=== PATIENT | female | born 2000 | race Caucasian/White ===

== ENCOUNTER 2022-04-27 08:22 | Outpatient (CLI) | payer OTHER, SELFPAY ==
[2022-04-27 13:43] LABS: Chloride* 100 mmol/L (96-114)
[2022-04-27 13:44] LABS: Potassium* 4.2 mmol/L (3.6-5.1); Sodium* 138 mmol/L (135-149)
[2022-04-27 13:46] LABS: Creatinine* 0.8 mg/dL (0.5-1.5); Estimated Glomerular Filt Rate 105 ml/min
[2022-04-27 13:47] LABS: Blood Urea Nitrogen* 13 mg/dL (5-24); Carbon Dioxide* 27 mmol/L (20-32); Glucose* 88 mg/dL (60-115)
== END 2022-04-27 08:23 | disposition home or self-care (01) ==
PROVIDERS: PCP Family Medicine; Visit Provider Family Medicine
DX: F32.A Depression, unspecified (principal)
CPT/HCPCS: 80048; 84443

== ENCOUNTER 2022-09-09 13:20 | Outpatient (CLI) | payer OTHER, SELFPAY ==
[2022-09-09 19:33] LABS: Chlamydia DNA Amplified* NOT DETECTED (No Detected); GC DNA Amplified* NOT DETECTED (No Detected)
== END 2022-09-09 13:21 | disposition home or self-care (01) ==
PROVIDERS: PCP Family Medicine; Visit Provider Registered Nurse
DX: Z01.419 Encounter for gynecological examination (general) (routine) without abnormal findings (principal); Z11.3 Encounter for screening for infections with a predominantly sexual mode of transmission; Z13.6 Encounter for screening for cardiovascular disorders
CPT/HCPCS: 80061; 87491; 87591

== ENCOUNTER 2022-09-10 12:46 | Outpatient (CLI) | payer OTHER, SELFPAY ==
--- NOTE | 2022-09-10 13:00 | CRLHL7_ITS ---
For Patients: As a result of the Cures Act, medical imaging exams and procedure reports are released immediately into your electronic medical record. You may view this report before your referring provider. If you have questions, please contact your health care provider. INDICATION: Missing IUD strings TECHNIQUE: Ultrasound pelvis transvaginal on. COMPARISON: None FINDINGS: Uterus: 10.8 centimeter x 3.3 centimeter x 4.5 centimeter normal echotexture of the myometrium. No masses. Endometrium: The endometrium is not visualized. IUD present in the endometrial canal at the level of the uterine fundus. Right ovary: 3.5 centimeter x 2.1 centimeter x 2.0 centimeter. No ovarian or adnexal masses. Normal arterial and venous blood flow. Left ovary: 3.2 centimeter x 1.5 centimeter x 1.7 centimeter. No ovarian or adnexal masses. Normal arterial and venous blood flow. Cul-de-sac: Mild amount of free fluid. IMPRESSION: IUD present in the endometrial canal at the level of the fundus. Small amount of fluid in the cul de sac. Dictated by Jasbir Mills MD @ 09/10/2022 1:44:11 PM (Electronically Signed)
== END 2022-09-10 12:47 | disposition home or self-care (01) ==
LOC: US 12:47
PROVIDERS: PCP Family Medicine; Visit Provider Registered Nurse
DX: T83.32XA Displacement of intrauterine contraceptive device, initial encounter (principal)
CPT/HCPCS: 76830

== ENCOUNTER 2024-07-03 13:43 | Outpatient (CLI) | payer BC, SELFPAY ==
--- NOTE | 2024-07-03 14:00 | CRLHL7_ITS ---
For Patients: As a result of the Cures Act, medical imaging exams and procedure reports are released immediately into your electronic medical record. You may view this report before your referring provider. If you have questions, please contact your health care provider. INDICATION: First trimester scan, establish dates. COMPARISON: None. TECHNIQUE: Real-time cr-scale imaging of the pelvis was performed. FINDINGS: Sonographic imaging demonstrates a single living intrauterine gestation. The embryo demonstrates a regular cardiac rate measuring 176 beats per minute. The embryo`s crown-rump length measurement of 2.9 cm corresponds to a gestational age of 9 weeks 5 days with a sonographic due date of 01/31/2025. There is a normal-appearing yolk sac. There are no gross abnormalities noted within the embryo at this early state of development. The gestational sac has a normal appearance. There is a 1.3 x 0.7 x 0.8 cm perigestational hemorrhage. The amount of fluid within the sac appears appropriate for gestational age. The cervix is closed. The myometrium appears normal. The ovaries are of normal size. Corpus luteal cyst right ovary. There are no suspicious fluid collections noted in the cul-de-sac. IMPRESSION: Single living intrauterine with sonographic gestational age 9 weeks 5 days and sonographic due date 01/31/2025. Subchorionic hemorrhage measures 1.3 x 0.7 x 0.8 cm. Dictated by Jasbir Rosa MD @ 07/03/2024 2:32:48 PM (Electronically Signed)
== END 2024-07-03 13:44 | disposition home or self-care (01) ==
LOC: US 13:43
PROVIDERS: PCP Family Medicine; Visit Provider Midwife
DX: Z34.91 Encounter for supervision of normal pregnancy, unspecified, first trimester (principal); O20.9 Hemorrhage in early pregnancy, unspecified; Z3A.09 9 weeks gestation of pregnancy
CPT/HCPCS: 76817

== ENCOUNTER 2024-07-03 14:26 | Outpatient (CLI) | payer BC, SELFPAY | END 2024-07-03 14:27 | disposition home or self-care (01) | PROVIDERS: PCP Family Medicine; Visit Provider Midwife | DX: Z34.91 Encounter for supervision of normal pregnancy, unspecified, first trimester (principal); O20.9 Hemorrhage in early pregnancy, unspecified; Z3A.09 9 weeks gestation of pregnancy | CPT/HCPCS: 76817; 83020; 83021; 84443; 85660; 86592; 86703; 86704; 86706; 86762; 86787; 86803; 86850; 86900; 86901; 87086; 87340; 87491; 87591 ==

== ENCOUNTER 2024-08-31 14:56 | Outpatient (CLI) | payer BC, SELFPAY | END 2024-08-31 14:57 | disposition home or self-care (01) | LOC: NFLDREF 14:57 | PROVIDERS: PCP Family Medicine; Visit Provider Advanced Practice Midwife | DX: R10.30 Lower abdominal pain, unspecified (principal) | CPT/HCPCS: 87086 ==

== ENCOUNTER 2024-09-14 12:07 | Outpatient (CLI) | payer BC, SELFPAY | END 2024-09-14 12:08 | disposition home or self-care (01) | LOC: US 12:09 | PROVIDERS: PCP Family Medicine; Visit Provider Advanced Practice Midwife | DX: Z34.92 Encounter for supervision of normal pregnancy, unspecified, second trimester (principal); Z3A.21 21 weeks gestation of pregnancy | CPT/HCPCS: 76805 ==

== ENCOUNTER 2024-10-03 08:58 | Outpatient (CLI) | payer BC, SELFPAY ==
--- NOTE | 2024-10-03 09:15 | CRLHL7_ITS ---
For Patients: As a result of the Century Cures Act, medical imaging exams and procedure reports are released immediately into your electronic medical record. You may view this report before your referring provider. If you have questions, please contact your health care provider. INDICATION: 2nd trimester anatomical survey follow-up. TECHNIQUE: Ultrasound OB pelvis transabdominal. Real-time cr-scale and color Doppler. COMPARISON: Ob ultrasound 09/14/2024 FINDINGS: Intrauterine gestation: Single. heart rate: Regular, 147 bpm. presentation: Cephalic. Placenta: Posterior, without previa. Cervix: 4.6 cm and closed. Amniotic fluid: 6.1 cm deepest pocket. Anatomy not seen on previous anatomical survey: Nose and lips are well visualized on today`s exam and are within normal limits. Nasal bone in profile is better appreciated on prior ultrasound IMPRESSION: Nose and lips are well visualized on today`s exam and are within normal limits. No abnormalities appreciated Dictated by Nidia Quevedo MD @ 10/04/2024 12:49:39 PM (Electronically Signed)
== END 2024-10-03 08:59 | disposition home or self-care (01) ==
LOC: US 08:58
PROVIDERS: PCP Family Medicine; Visit Provider Midwife
DX: O35.AXX0 Maternal care for other (suspected) fetal abnormality and damage, fetal facial anomalies, not applicable or unspecified (principal)
CPT/HCPCS: 76816

== ENCOUNTER 2024-11-14 08:34 | Outpatient (CLI) | payer BC, SELFPAY | END 2024-11-14 08:35 | disposition home or self-care (01) | LOC: NFLDREF 11-17 01:49 | PROVIDERS: PCP Family Medicine; Referring Provider Family Medicine; Visit Provider Advanced Practice Midwife | DX: Z34.93 Encounter for supervision of normal pregnancy, unspecified, third trimester (principal); Z3A.28 28 weeks gestation of pregnancy | CPT/HCPCS: 86592 ==

== ENCOUNTER 2025-01-08 10:15 | Outpatient (CLI) | payer BC, SELFPAY | END 2025-01-08 10:16 | disposition home or self-care (01) | LOC: NFLDREF 01-09 17:10 | PROVIDERS: PCP Family Medicine; Referring Provider Family Medicine; Visit Provider Advanced Practice Midwife | DX: O26.86 Pruritic urticarial papules and plaques of pregnancy (PUPPP) (principal); Z3A.36 36 weeks gestation of pregnancy | CPT/HCPCS: 87081; 87653 ==

== ENCOUNTER 2025-02-05 07:29 | Inpatient (IN) | payer BC, SELFPAY ==
[2025-02-05] VITALS (78 sets, daily range): BP systolic 98–151; BP diastolic 53–84; PULSE 81–125; RESP 16–18; TEMP 36.4–37.1; O2SAT 97–100; BMI 43.6
[2025-02-05 09:59] LABS: Hematocrit* 39.8 % (33.0-51.0); Hemoglobin* 14.1 gm/dL (12.0-16.0); Immature Granulocytes Pct Auto 0.9 %; Mean Corpuscular HGB Conc 35 gm/dL (32-36); Mean Corpuscular Hemoglobin 32 pg (26-34); Mean Corpuscular Volume 91 fL (80-100); RDW Coefficient of Variation % 12.6 % (11.5-15.5); Red Blood Count* 4.38 m/uL (4.00-5.20); White Blood Count* 14.53 K/uL (4.50-11.00)
[2025-02-05 10:02] LABS: Immature Granulocytes Abs Auto 0.10 K/uL (0.00-0.30); Lymphocytes Absolute Auto 1.60 K/uL (0.90-2.90); Slide Review Reflex No
--- NOTE | 2025-02-05 13:42 | P.LDBA_ITS ---
Subjective History of Present Illness Date Seen: 02/05/25 Narrative: Patient is being admitted to Labor and Delivery for IOL for postdates. She is a 24 year old at 40w 5d weeks gestation. she has been having some mild, irregular cramping, but no timeable ctx. denies LOF, VB, and endorses +FM. Specific Issues/Plans G1 P 0 Partner: Christal?It is a boy! H&P completed by Barbie TURPIN 01/15/2025. ? #Hx anxiety and depression-no current meds wants to consider meds prior to delivery or immediately PP. Has been on Lexapro and Bupropion in the past. #Frequent Headaches/migraines Reglan prescribed 07/31 # has family hx of urea cycle disorder (metabolic disorder) His mother had a baby who passed from this. She thinks he had a small work-up without any abnormal findings Discussed genetic screening: ordered 08/22 and genetics referral: declines at this time #PUPPPs-Triamcinalone RX sent # Excess weight gain: Enc small well-balanced meals, daily walks, decrease processed foods. Prepregnancy BMI<35. Again encouraged 01/15/25. ? Imaging:? 1st trimester: 07/03/24-Single living intrauterine with sonographic gestational age 9 weeks 5 days and sonographic due date 01/31/2025. Subchorionic hemorrhage measures 1.3 x 0.7 x 0.8 cm.?? Anatomy scan: 09/14/2024-Single live intrauterine gestation. , nose, and lips suboptimally seen.There are otherwise no gross anomalies visualized. Others: 10/03/24-Nose and lips are well visualized on today`s exam and are within normal limits. No abnormalities appreciated ? COVID:?Declines? Flu:?Declines?? Tdap:?12/12/2024 RSV:?N/A 32wk Mental Health:?12/12/2024 34wk hgb:?12/27/2024 (Result:14.2) Pap: [(Only high-risk abnormal pap in problem list)]? ? OB - Problem Based A/P Additional Plan (1) Supervision of other normal : Status: Acute (2) PUPPP (pruritic urticarial papules and plaques of ): Status: Acute (3) Major depression, recurrent: Status: Acute (4) Ultrasound scan abnormal: Status: Acute (5) Encounter for induction of labor: Status: Acute (6) Post-dates : Status: Acute Plan ASSESSMENT:? 24 y.o. at 40.5 weeks gestation? complicated by:?PUPPP Labor type: Induced? Category 1 FHR pattern.?? GBS negative ? PLAN:? 1. Routine intrapartum cares as ordered. Continue with expectant management? 2. Monitoring per policy, intermittent and continuous if needed for oxytocin, FHR concerns, or labor epidural, or as needed. 3. Planning unmedicated , but open to options as needed. Candidate for analgesia of choice.?? 4. Patient encouraged to reposition and ambulate to promote physiologic labor and .? 5. AROM, add oxytocin if ctx don't pickle sorter with only AROM 6. Anticipate ? Delivery/Labor/Induction Plan Induction method: AROM OB Exam Physical Exam Vital signs: Temp Pulse Resp BP Pulse Ox 97.9 F 82 18 128/70 97 02/05/25 12:57 02/05/25 10:48 02/05/25 12:57 02/05/25 10:48 02/05/25 07:51 Narrative: Vitals Reviewed Constitutional:? Alert and oriented x3 HEENT:? Normocephalic, atraumatic Lungs:? Clear to auscultation bilaterally Heart:? Regular rate and rhythm, no murmur, rub or gallop Abdomen:? Soft, nontender, and gravid. Vertex by Angelo's, confirmed with cervical exam. Extremities:? No edema or erythema Cervix: 3 cm/100%/-2 station/vertex: AROM, small to moderate amt of light mec fluid NST: 135 bpm/mod variability/+accelerations/no decelerations/2.5-7 contractions, mild
[2025-02-05] MEDS: LACTATED RINGERS 1000 ML 1,000 ML 999 ML IV (15:03)
[2025-02-05] MEDS: ROPIVACAINE 0.2 % PF 10 ML INJ 20 MG EPIDURAL (15:39)
[2025-02-05] MEDS: ROPIVACAINE 0.2% 100 ml 100 ML 12 MG EPIDURAL ×2 (15:39→23:01)
[2025-02-05] MEDS: LIDOCAINE 2% (PF) 5 ML VIAL EPIDURAL (15:39)
--- NOTE | 2025-02-05 15:44 | PM.ANBPRC ---
[facility] Medical History (Updated 02/05/25 @ 13:49 by Brianda Wakefield CNM) Bone spur of left foot ?M77.52 - Other enthesopathy of left foot and ankle (ICD-10) Family history of thyroid disease ?Z83.49 - Family history of other endocrine, nutritional and metabolic diseases (ICD-10) Anxiety ?F41.9 - Anxiety disorder, unspecified (ICD-10) Major depression, recurrent ?F33.9 - Major depressive disorder, recurrent, unspecified (ICD-10) Sensorineural hearing loss (SNHL) of both ears (02/28/13) ?H90.3 - Sensorineural hearing loss, bilateral (ICD-10) Migraine with aura and without status migrainosus, not intractable (01/01/15) ?G43.109 - Migraine with aura, not intractable, without status migrainosus (ICD-10) Insomnia ?G47.00 - Insomnia, unspecified (ICD-10) Chronic daily headache ?R51.9 - Headache, unspecified (ICD-10) Surgical History (Updated 01/15/25 @ 11:41 by Idania Plasencia CNM) [place] teeth extracted ?K08.409 - Partial loss of teeth, unspecified cause, unspecified class (ICD-10) Status post left foot surgery ?Z98.890 - Other specified postprocedural states (ICD-10) S/P hardware removal ?Z98.890 - Other specified postprocedural states (ICD-10) Hx of tonsillectomy ?Z90.89 - Acquired absence of other organs (ICD-10) Family History Mother Acute migraine Thyroid disease Father Rheumatoid arteritis Thyroid disease Family/Other Stroke Breast cancer Diabetes Maternal Grandmother Thyroid cancer Abuse, drug or alcohol Uncle Bipolar disorder Social History (Updated 07/03/24 @ 14:32 by Isidra Newby MA) Narrative: 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 Nonsmoker. Occasional alcohol use What is your current living situation?: I presently have a place to live Problems where you live: no known problems In the past 12 months, utilities in danger of being shut off: no In past 12 months, lack of transportation kept you from medical appts, meetings, work, or getting things needed for daily living: no In the past 12 mos, have been you worried that your food would run out before you had money to buy more?: never true In the past 12 mos, the food you bought just didn't last and you didn't have money to buy more?: never true Smoking Status: Former smoker How often does anyone, including family, friends and others, physically hurt you: never How often does anyone, including family, friends and others, insult or talk down to you: never How often does anyone, including family, friends and others, threaten you with harm: never How often does anyone, including family, friends and others, scream or curse at you: never Meds Home Medications and Allergies Home Medications ?Medication ?Instructions ?Recorded ?Confirmed ?Type docosahexaenoic acid 200 mg mg PO 07/03/24 01/31/25 History capsule ( DHA) omega 3-yja-lfn-fish oil 60 mg-90 2 cap PO QDAY 07/03/24 02/05/25 History mg-500 mg capsule (Fish Oil) cholecalciferol (vitamin D3) 25 25 mcg PO QDAY 07/31/24 02/05/25 History mcg (1,000 unit) capsule metoclopramide HCl 10 mg tablet 10 mg PO Q6H PRN headache #30 tabs 07/31/24 02/05/25 Rx (Reglan) aspirin 81 mg tablet,delayed 81 mg PO QDAY 09/14/24 02/05/25 History release triamcinolone acetonide 0.1 % 1 applic topical BID #30 grams 11/28/24 01/31/25 Rx topical cream Allergies Allergy/AdvReac Type Severity Reaction Status Date / Time No Known Drug Allergies Allergy Verified 01/31/25 08:18 Results Labs Labs: Laboratory Results - last 24 hr 02/05/25 09:19 WBC 14.53 H RBC 4.38 Hgb 14.1 Hct 39.8 MCV 91 MCH 32 MCHC 35 RDW Coeff of Mariah 12.6 Plt Count 243 Neut % (Auto) 82.8 H Lymph % (Auto) 10.9 L [place] % (Auto) 4.5 Eos % (Auto) 0.8 Baso % (Auto) 0.1 Neut # (Auto) 12.00 H Lymph # (Auto) 1.60 [place] # (Auto) 0.70 Eos # (Auto) 0.10 Baso # (Auto) 0.00 Abs Immat Gran (auto) 0.10 Imm/Tot Granulo (auto) 0.9 Vital Signs Vital Signs: Last Vital Signs Temp 97.9 F 02/05/25 15:00 Pulse 115 H 02/05/25 15:43 Resp 18 02/05/25 15:00 BP 138/65 02/05/25 15:43 Pulse Ox 99 02/05/25 15:41 Weight: 111.72 kg Height: 160.02 cm Anesthesia Procedures Epidural Insertion Patient Location: OB Start Time: 15:10 Stop Time: 15:45 Start Date: 02/05/25 Stop Date: 02/05/25 Reason for Block: procedure for pain Patient Position: sitting Performed By: Will Garsia Preanesthetic Checklist: IV checked, risks and benefits discussed, surgical consent, monitors and equipment checked, pre-op evaluation, timeout performed and anesthesia consent Prep: chlorhexidine gluconate Monitoring: blood pressure monitoring, continuous pulse oximetry and heart rate Approach: midline Vertebral Space: lumbar (1-5) Epidural Technique: NISSA air Needle Type: Tuohy needle Injection Technique: continuous catheter Needle gauge: 17 Needle Length (cm): 10 cm Needle Insertion Depth (cm): 7 Catheter Gauge: 19 Catheter Type: multi-orifice Catheter at skin depth (cm): 13 Test Dose Result: negative and lidocaine 1.5% with epinephrine 1 to 200,000
--- NOTE | 2025-02-05 16:05 | P.OBPN_ITS ---
Subjective Date Seen: 02/05/25 Narrative: Mckenzie is a 24 y.o. at 40w5d who here for IOL for postdates. she is now comfortable with her labor epidural. she does not have any oxytocin running at this point, thus far we have started the process with AROM. smant amount of light mec fluid noted Objective Vital Signs: Last Vital Signs Temp 98.3 F 02/05/25 15:55 Pulse 104 H 02/05/25 16:00 Resp 18 02/05/25 15:55 BP 151/64 H 02/05/25 16:00 Pulse Ox 100 02/05/25 15:56 Pelvic Exam Comments: Vitals Reviewed Constitutional:? Alert and oriented x3 Abdomen: gravid, ctx palpate moderate and soft in between Cervix: 4.5 cm/100%/0 to -1 station/vertex NST: 125 bpm/mod variability/+ accelerations/no decelerations/contractions: abo ut 5 min apart Plan Plan: ASSESSMENT:? 24 at 40.5 weeks gestation? complicated by:?post dates , PUPPP, depression Labor type: Induced Early labor? Category 1 FHR pattern.?? Labor complicated by: none? GBS negative labor epidural AROM: light mec ? PLAN:? 1. Routine intrapartum cares as ordered. 2. Start oxytocin management? 3. Monitoring per policy, continuous 4. Anticipate ?
[2025-02-05] MEDS: OXYTOCIN 30 unit/500 ML in NS 30 UNIT/500 ML BAG IVPB (16:27)
[2025-02-05] MEDS: LACTATED RINGERS 1000 ML 1,000 ML 125 ML IV (17:25)
[2025-02-06] VITALS (79 sets, daily range): BP systolic 99–141; BP diastolic 52–90; PULSE 78–163; RESP 16–20; TEMP 36.4–37; O2SAT 94–100
--- NOTE | 2025-02-06 00:15 | PM.OBPNL ---
Subjective Date Seen: 02/06/25 Objective Exam: Mckenzie is a 24 y.o. at 40w6d who here for IOL for postdates. She is comfortable with her labor epidural. She has oxytocin running at 4 mu/min and AROM with sm ant amount of light mec fluid noted throughouit labor. VSS Vital Signs: Last Vital Signs Temp 98.8 F 02/05/25 23:55 Pulse 114 H 02/06/25 00:01 Resp 17 02/05/25 23:55 BP 112/57 L 02/06/25 00:01 Pulse Ox 98 02/05/25 23:55 Pelvic Exam Comments: Vitals Reviewed Constitutional:? Alert and oriented x3 Abdomen:? Soft, nontender, and gravid. Cervix: 8-9 cm/100%/0 station/vertex: molding noted and baby LOP/OP NST: 125 bpm/mod variability/+accelerations/ variable decelerations at times recurrent that are down to the 90s and lasting 20-30 seconds/ contractions;1.5-3 min apart Plan Plan: Plan Plan: ASSESSMENT:? 24 at 40.6 weeks gestation? complicated by:?post dates , PUPPP, depression Labor type: Induced active labor? Category 2 FHR pattern.?? Labor complicated by: OP/LOP position GBS negative labor epidural AROM: light mec ? PLAN:? 1. Routine intrapartum cares as ordered. 2. Continue oxytocin management? 3. Monitoring per policy, continuous 4. Due to baby current position of OP/LOP, will complete the [place] [employer] to attempt to get baby in a better position for delivery. 4. hopeful for progress and if baby rotates anticipate ?
[2025-02-06] MEDS: LACTATED RINGERS 1000 ML 1,000 ML 125 ML IV (00:57)
--- NOTE | 2025-02-06 02:22 | PM.OBPNL ---
Subjective Date Seen: 02/06/25 Objective Exam: Mckenzie is a 24 y.o. at 40w6d who here for IOL for postdates. She is comfortable with her labor epidural. She has oxytocin running at 4 mu/min and AROM with mec fluid noted throughout labor. VSS. baby was noted to be in OP/LOP position so the RN completed some positions of the [place] circuit incluidng side lying release on both sides and flying cowgirl on borh sides. after this Mckenzie got shaky and nauseous so knees/chest wasn't completed. baby was then having some recurrent variables so she was placed back on her L side for baby to recooperate. Vital Signs: Last Vital Signs Temp 98.2 F 02/06/25 02:03 Pulse 104 H 02/06/25 02:02 Resp 20 02/06/25 02:03 BP 109/58 L 02/06/25 02:02 Pulse Ox 100 02/06/25 02:03 Pelvic Exam Comments: Vitals Reviewed Constitutional:? Alert and oriented x3 Cervix: 9 cm/100%/0 station/vertex: significant molding of the head and LOP/LOT position NST: 135 to 145 bpm at different times/mod variability/+ accelerations/ recurrent variable decelerations with ctx < 50% of the time. variables dipping to 90s/100s and lasting 20-30 seconds. contractions: 1.5-2.5 min, strong Plan Plan: ASSESSMENT:? 24 at 40.6 weeks gestation? complicated by:?post dates , PUPPP, depression Labor type: Induced active labor? Category 2 FHR pattern.?? Labor complicated by: LOT/LOP position GBS negative labor epidural AROM: mec stained fluid ? PLAN:? 1. Routine intrapartum cares as ordered. 2. Continue oxytocin management? 3. Monitoring per policy, continuous 4. continue to labor to complete 4. hopeful for progress and ?
[2025-02-06] MEDS: lidocaine HCL 2 % JELLY (TOP) STERILE 6 ML UR (04:31)
[2025-02-06] MEDS: ROPIVACAINE 0.2% 100 ml 100 ML 12 MG EPIDURAL (05:28)
--- NOTE | 2025-02-06 06:12 | P.OBPN_ITS ---
Subjective Time Seen by Provider: 05:55 Date Seen: 02/06/25 Narrative: Contacted SHEET [employer]PERATOR transcription typist for formal consult RE pt status, and FHR pattern. At this time, FHR is back to baseline, oxytocin is off, fluid bolus is running, and pt in L lateral position. Requesting eval for section. SHEET [employer] H[employer] OPERATOR is calling for . Team called in and steps to proceed with section sooner rather than later. Objective Vital Signs: Last Vital Signs Temp 97.5 F L 02/06/25 05:56 Pulse 98 02/06/25 05:46 Resp 20 02/06/25 04:22 BP 109/54 L 02/06/25 05:46 Pulse Ox 100 02/06/25 06:09
[2025-02-06] MEDS: AZITHROMYCIN 500 MG in 0.9 % SODIUM CHLORIDE 250 ml 250 ML 255 MG IVPB (06:18)
--- NOTE | 2025-02-06 06:24 | PM.OBPNL ---
Subjective Time Seen by Provider: 03:45 Date Seen: 02/06/25 Objective Exam: Mckenzie has been pushing for about an hour. Vital Signs: Last Vital Signs Temp 97.5 F L 02/06/25 05:56 Pulse 100 02/06/25 06:15 Resp 20 02/06/25 04:22 BP 114/53 L 02/06/25 06:15 Pulse Ox 99 02/06/25 06:19 Pelvic Exam Comments: Cervix: 10 cm/100 %/ 0 station/vertex: head very cone shaped. NST: 145 bpm/mod variability/ unable to determine if accelerations present as maternal/ coincidence present/variable decelerations with ctx contractions; 2.5-3 min apart Plan Plan: Continue to push as baby tolerates. Hopeful for reposition, progress with pushing, and nsvb
[2025-02-06] MEDS: ONDANSETRON 2 MG/ML inj 4 MG IV (06:29)
--- NOTE | 2025-02-06 06:31 | PM.OBCN1 ---
OB - CN: HPI Date of Consult Time Seen by Provider: 06:05 Date Seen: 02/06/25 Patient: [facility] Patient Consult date: 02/06/25 Requesting Physician: Brianda Wakefield CNM Primary Care Provider: Jasibr Pickard MD Consult Narrative Reason for consult: nonreassuring FHTs Narrative: I am seeing Mckenzie by request of Brianda Wakefield CNM, for evaluation of arrest of descent. She is 24 years old, , currently at 40 weeks, 6 days gestation. She had an IOL for postdates. She is GBS negative. She had an epidural for pain control. She has been complete since 2:45 AM, pushed for two hours with little progress, then took a break. Brianda Wakefield was then called to room for decelerations and subsequently called me for consult. Pitocin was stopped. Otherwise refer to Brianda Wakefield's note for full detail. Mckenzie has had no abdominal surgery. History History 1 Elective abortions Para 0 Spontaneous abortions Hx # Term Pregnancies Ectopic pregnancies Hx # Pregnancies Multiple births Number of Living Children Labs GBS status: negative OB Labs: Lab Assessment Start: 02/05/25 07:38 Freq: ONCE Status: Active Protocol: PC.OBGBS Activity Type Activity Date Activity User E-sign Co-sign Detail Recorded Client Recorded Date Recorded By Document 02/05/25 07:55 WILLIE No Response 02/05/25 07:55 WILLIE 02/05/25 07:55 Lab Assessment GBS Status negative GBS Additional Criteria None No Treatment Needed OK Are Labs Available Yes Maternal Blood Type O Maternal RH Factor Positive Evaluate Maternal Rubella Immune Status Immune Hepatitis B Surface Antigen Negative Maternal HIV Status Negative Maternal Syphillis (RPR) Status Negative [facility] Medical History (Updated 02/06/25 @ 06:40 by Samara Davis MD) Bone spur of left foot ?M77.52 - Other enthesopathy of left foot and ankle (ICD-10) Family history of thyroid disease ?Z83.49 - Family history of other endocrine, nutritional and metabolic diseases (ICD-10) Anxiety ?F41.9 - Anxiety disorder, unspecified (ICD-10) Major depression, recurrent ?F33.9 - Major depressive disorder, recurrent, unspecified (ICD-10) Sensorineural hearing loss (SNHL) of both ears (02/28/13) ?H90.3 - Sensorineural hearing loss, bilateral (ICD-10) Migraine with aura and without status migrainosus, not intractable (01/01/15) ?G43.109 - Migraine with aura, not intractable, without status migrainosus (ICD-10) Insomnia ?G47.00 - Insomnia, unspecified (ICD-10) Chronic daily headache ?R51.9 - Headache, unspecified (ICD-10) Surgical History (Updated 01/15/25 @ 11:41 by Idania Plasencia CNM) [place] teeth extracted ?K08.409 - Partial loss of teeth, unspecified cause, unspecified class (ICD-10) Status post left foot surgery ?Z98.890 - Other specified postprocedural states (ICD-10) S/P hardware removal ?Z98.890 - Other specified postprocedural states (ICD-10) Hx of tonsillectomy ?Z90.89 - Acquired absence of other organs (ICD-10) Family History Mother Acute migraine Thyroid disease Father Rheumatoid arteritis Thyroid disease Family/Other Stroke Breast cancer Diabetes Maternal Grandmother Thyroid cancer Abuse, drug or alcohol Uncle Bipolar disorder Social History (Updated 07/03/24 @ 14:32 by Isidra Newby MA) Narrative: 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 Nonsmoker. Occasional alcohol use What is your current living situation?: I presently have a place to live Problems where you live: no known problems In the past 12 months, utilities in danger of being shut off: no In past 12 months, lack of transportation kept you from medical appts, meetings, work, or getting things needed for daily living: no In the past 12 mos, have been you worried that your food would run out before you had money to buy more?: never true In the past 12 mos, the food you bought just didn't last and you didn't have money to buy more?: never true Smoking Status: Former smoker How often does anyone, including family, friends and others, physically hurt you: never How often does anyone, including family, friends and others, insult or talk down to you: never How often does anyone, including family, friends and others, threaten you with harm: never How often does anyone, including family, friends and others, scream or curse at you: never Meds Home Medications and Allergies Home Medications ?Medication ?Instructions ?Recorded ?Confirmed ?Type docosahexaenoic acid 200 mg mg PO 07/03/24 01/31/25 History capsule ( DHA) omega 6-qsl-iel-fish oil 60 mg-90 2 cap PO QDAY 07/03/24 02/05/25 History mg-500 mg capsule (Fish Oil) cholecalciferol (vitamin D3) 25 25 mcg PO QDAY 07/31/24 02/05/25 History mcg (1,000 unit) capsule metoclopramide HCl 10 mg tablet 10 mg PO Q6H PRN headache #30 tabs 07/31/24 02/05/25 Rx (Reglan) aspirin 81 mg tablet,delayed 81 mg PO QDAY 09/14/24 02/05/25 History release triamcinolone acetonide 0.1 % 1 applic topical BID #30 grams 11/28/24 01/31/25 Rx topical cream Allergies Allergy/AdvReac Type Severity Reaction Status Date / Time No Known Drug Allergies Allergy Verified 01/31/25 08:18 OB - H&P: Exam Physical Exam: Vital signs: Temp Pulse Resp BP Pulse Ox 97.5 F L 100 20 114/53 L 98 02/06/25 05:56 02/06/25 06:15 02/06/25 04:22 02/06/25 06:15 02/06/25 06:29 Narrative: Physical exam: Vitals as noted above. General: No acute distress Psych: Alert and oriented x 3, full affect HEENT: Normocephalic, atraumatic Abdomen: Soft, nontender, gravid, obese Pelvic exam: Cervix is completely dilated with head at +1 station, suspect OP Urine is blood with placement of Tejeda catheter tracing: Baseline around 125 per minute. Moderate variability. Accelerations are present. There were at least 2 prolonged decelerations beginning at 5:45 a.m., proceeded by discontinuous tracing. The 1st of these was 5 minutes, and the 2nd was 4 minutes. Times are approximate. Mehran of the 1st appears to have been into the 60s. Mehran of the 2nd around the 80s. Since recovery, moderate variability continues, but there are recurrent brief variable decelerations.. OB - Results Labs Labs: Short CBC 02/05/25 Range/Units 09:19 WBC 14.53 H (4.50-11.00) K/uL Hgb 14.1 (12.0-16.0) gm/dL Hct 39.8 (33.0-51.0) % Plt Count 243 (140-440) K/uL OB - CN: A/P Assessment and Plan (1) Arrested labor: Status: Acute Assessment and Plan: Approaching 4 hours in 2nd stage with nonreassuring status. I recommended delivery to the patient. We discussed risks of surgery, including bleeding, hemorrhage, infection of bladder, uterus, or soft tissues, damage to internal organs, risk of thromboembolism, intra-abdominal scarring, and impact on future pregnancies. We discussed likely postoperative restrictions. Consent form was reviewed with and signed by patient. Cefazolin and azithromycin for preoperative prophylaxis.
--- NOTE | 2025-02-06 06:38 | PM.OBPNL ---
Subjective Time Seen by Provider: 04:45 Date Seen: 02/06/25 Narrative: Mckenzie has been pushing for 2 hours with little progress. Objective Vital Signs: Last Vital Signs Temp 97.5 F L 02/06/25 05:56 Pulse 100 02/06/25 06:15 Resp 20 02/06/25 04:22 BP 114/53 L 02/06/25 06:15 Pulse Ox 98 02/06/25 06:34 Comments: Vitals Reviewed Constitutional:? Alert and oriented x3 Cervix: 10 cm/100%/0 to +1 station/vertex: head still not well applied to cervix and very cone shaped by feel with SVE. NST: 135 bpm/mod variability/ + accelerations/variable decelerations with < 50% of ctx. periods of intermittent tracing as well as coincidental tracing with maternal heart rate. contractions: 2.5-4 min apart. Plan Plan: ASSESSMENT:? 24 at 40.6 weeks gestation? complicated by:?post dates , PUPPP, depression Labor type: Induced active labor? Category 2 FHR pattern.?? Labor complicated by: OP/LOP position GBS negative labor epidural AROM: mec fluid Cat 2 FHR tracing with recurrent variable decels < 50% of the time, moderate variability, accels present. at times broken tracing and coincidental tracing with maternal HR. ? PLAN:? Due to baby current position of OP/LOT, will complete some [employer] positions to attempt to get baby in a better position for delivery and let her labor down for an hour. If baby tolerates this, we will begin pushing in an hour or sooner if pt desires. Hopeful for progress and if baby rotates anticipate ?
[2025-02-06 07:05] LABS: Hemoglobin* 13.3 gm/dL (12.0-16.0)
[2025-02-06] MEDS: CEFAZOLIN 2 GM INJ IVP (07:10)
--- NOTE | 2025-02-06 08:24 | P.OBPRC_ITS ---
Procedure Time Seen by Provider: 07:00 Date of procedure: 02/06/25 Procedure Done: Global Will [facility] bill your pro fee for this procedure?: Yes IV fluids (mL): 800 Urine Output (mL): 200 (blood tinged at the start of the procedure) Procedure Description: DELIVERY BY SECTION Date of Service: 02/06/25 Delivery time: 722 Summary: Sign out received from Dr. Davis at 0700. See counseling note for further details. Admitted for IOL at 40.5 days, Primary Lower uterine transverse section, Pfannenstiel, Closed with sutures, QBL 926 cc, No complications Findings: Filmy adhesions of sigmoid epiploica, to the left ovary, Normal uterus, bilateral ovaries and tubes. Very thick meconium. OP position Nuchal cord x1 2 cm right lower uterine segment extension 8/9, weight 4095 g. Primary Indication: 1. Arrest of descent 2. Nonreassuring heart status Procedures: Primary Lower uterine transverse section Specimens Removed: Placenta Cord gases Surgeon: Shilpa Prakash MD [employer] Attendant Surgeon: Samara Davis MD Anesthesia: Epidural Report: Prophylactic antibiotic, 2 g of Ancef and 500 mg of azithromycin were given before patient was taken to OR. After arrival to the operating room patient was placed in the supine position with left lateral tilt after her epidural was rebolused. She was prepped and draped in the usual sterile manner. Laparotomy A pfannenstiel incision was made through the anterior abdominal wall with #10 scalpel approximately 2 cm above the pubic symphysis. The incision was extended sharply with the #10 scalpel through the subcutaneous tissue to the level of fascia. The fascia was entered sharply with a #10 scalpel (Pfannenstiel) in the midline and extended in semi-elliptical fashion with digits. The rectus muscles were in the midline bluntly with digits. The peritoneum was then entered bluntly. The peritoneal incision was then extended superiorly and inferiorly under direct visualization with care being taken to avoid bladder and bowel. No adhesions were noted. The peritoneal incision was enlarged bluntly by lateral traction from the surgeon's and assistant activities director's hand. Teofilo retractor was inserted into the abdomen. Delivery A bladder flap was developed by grasping with Swazi forcep and enter with Metzenbaun scissor. Then sharp and blunt dissection with Metzenbaum scissor and fingers were performed. A low transverse hysterotomy was made then with #10 scalpel and extended laterally and cephalad with fingers in a low transverse fashion with Manu Carpenter technique with care being taken to avoid injury to the fetus. The amniotic cavity (membrane) was then entered with spontaneous rupture of membrane, and the amniotic fluid was noted to be very thick meconium, fetus was delivered cephalic. With delivery of the baby, 2 cm right lower uterine segment extension was noted. Placenta was delivered spontaneously with steady traction on cord and manual separation of placenta from uterine wall. Closure Uterine cavity was cleaned after placental delivery with lap sponge x 4. Right lower uterine segment extension was reapproximated 1st with 0 Vicryl in a continuous locking manner. Hemostatic and away from the bladder. The hysterotomy was closed in two layers with stitches using 0 Vicryl with continuous locking stitches and 0 Monocryl in a continuous non locking manner. Multiple figure of 8s placed at left hysterotomy angle. Hemostasis was achieved as needed with electrocautery. The ovaries/tubes/uterine surface were evaluated. Findings noted above. Teofilo retractor removed and hemostasis was confirmed again. Rowena applied. Small amount of left rectus muscle was transected. Reapproximated with laterally with 2-0 chromic. Hemostasis confirmed. Fascia was closed with running stitches using 0 Vicryl. Subcutaneous layer was irrigated. Hemostasis was checked for and found to be adequate. The subcutaneous layer was closed with running 2-0 chromic sutures. The skin was closed with 4-0 monocryl subcuticular sutures . The incision was cleaned and covered with a compression bandage and the procedure considered terminate at this time. Intraoperative Complications: None QBL: 926 cc Uterotonics/hemostatic agents: 40 unit of Pitocin, 0.2 mg of Methergine x1, 1 g of TXA x1 Disposition: The patient tolerated the procedure well. She was recovered in Obstetric PACU for close monitoring in stable condition, with a contracted uterus and normal transvaginal bleeding. The was sent to mother?s bedside. A segment of the cord was obtained for umbilical cord gases. Cord blood gas arterial: pH7.34, pC02 37, HCO3 20, BE -5.2 . The placenta was sent to pathology. Debrief with OR team performed and specimen reviewed at the conclusion of the procedure. Infant total score - 1 minute: 8 total score - 5 minute: 9
--- NOTE | 2025-02-06 08:36 | P.NB_ITS ---
Nerve Block Nerve Block Time Seen by Provider: 08:25 Date Seen: 02/06/25 Type of block requested by surgeon for post-operative analgesia: TAP Side: bilateral Time out performed: Yes Verification of patient name: Yes Verification of date of : Yes Site marking: site marked Name of person performing procedure: mantyl Continuous monitoring Was continuous monitoring of O2 sat, B/P, monitor and storage bin tender, recorded every 15 minutes?: Yes Procedure Checklist: sterile prep, needles and gloves Ultrasound guided. Images saved: Yes Medications given in 5ml increments after negative aspiration: Marcaine %: 0.25 mL: 30 and Exparel mL: 10 Patient tolerated procedure well: Yes Block Charges Block Charge (with Pro Fee): TAP Bilateral Use of Ultrasound Machine for Block: Yes- US Guidance/pain block
--- NOTE | 2025-02-06 08:37 | P.ANES_ITS ---
Anesthesia Charges Start Date/Time Anesthesia Start Date: 02/06/25 Anesthesia Start Time: 07:03 Stop Date/Time Anesthesia Stop Date: 02/06/25 Anesthesia Stop Time: 08:34 Summary Emergency: MANAGER MONITORING Coding CPT Codes CPT Codes: ANES/ANALG CS DELIVER ADD-ON - 47460 ([id number]) P3 - PATIENT W/SEVERE SYS DISEASE, QZ - MANAGER MONITORING SVC W/O COW TESTER BY Additional Codes: Summary - Emergency: MANAGER MONITORING ([id number])
--- NOTE | 2025-02-06 08:37 | W.ANESCHARGE ---
Anesthesia Charges Start Date/Time Anesthesia Start Date: 02/06/25 Anesthesia Start Time: 07:03 Stop Date/Time Anesthesia Stop Date: 02/06/25 Anesthesia Stop Time: 08:34 Summary Emergency: ANIMAL CARE ASSISTANT Coding CPT Codes CPT Codes: ANES/ANALG CS DELIVER ADD-ON - 98801 ([id number]) P3 - PATIENT W/SEVERE SYS DISEASE, QZ - ANIMAL CARE ASSISTANT SVC W/O SURVEILLANCE OPERATOR BY Additional Codes: Summary - Emergency: ANIMAL CARE ASSISTANT ([id number])
[2025-02-06] MEDS: ACETAMINOPHEN 500 MG TABLET 1000 MG PO ×2 (08:46→19:25)
[2025-02-06] MEDS: LACTATED RINGERS 1000 ML 1,000 ML 1200 ML IV (12:42)
--- NOTE | 2025-02-06 13:22 | PM.ANPOST ---
Post Anesthesia Note Post Anesthesia Note Patient seen: Inpatient Respiratory Status: adequate Cardiovascular Status: adequate Mental Status: baseline Pain: adequate Temp: baseline Anesthetic awareness: N/A Complications: none Follow care: none
[2025-02-07 01:20] VITALS: BP 112/72; PULSE 84; RESP 18; TEMP 36.5; O2SAT 96
[2025-02-07] MEDS: ACETAMINOPHEN 500 MG TABLET 1000 MG PO (03:21)
[2025-02-07 05:29] VITALS: BP 108/75; PULSE 77; RESP 18; TEMP 36.9; O2SAT 98
[2025-02-07 07:58] LABS: Hemoglobin* 11.1 gm/dL (12.0-16.0)
[2025-02-07] MEDS: DOCUSATE SODIUM 100 MG CAPSULE PO (10:19)
[2025-02-07 10:24] VITALS: BP 117/80; PULSE 100; RESP 20; TEMP 36.9; O2SAT 98
--- NOTE | 2025-02-07 11:55 | PM.OBPNVD1 ---
OB - PN:Subj Subjective Date Seen: 02/07/25 Narrative: Mckenzie is a 24 year old who was admitted for IOL post term and proceeded to have a primary ? for arrest of labor and stress. The patient feels well.? The pain is well controlled with current medications.? She has no new complaints.? Urinary output is adequate and she is voiding without difficulty.? Has a good appetite, is tolerating a general diet, is passing flatus, and has not had a bowel movement.? Has scant amount of rubra lochia.? She is ambulating well. She is and reports it is going well.? OB - PN: Obj Exam Physical Exam: Vital signs: Temp Pulse Resp BP Pulse Ox O2 Del Method 98.4 F 100 20 117/80 98 Room Air 02/07/25 10:24 02/07/25 10:24 02/07/25 10:24 02/07/25 10:24 02/07/25 10:02/07/25 10:24 Narrative: GENERAL APPEARANCE:? normal affect, alert, no distress MOOD:? appropriate CHEST:? clear to auscultation HEART:? regular rate and rhythm ABDOMEN:? soft, non-tender the uterine fundus is At Umbilicus, Midline and is appropriate for the stage of recovery. EXTREMITIES:? normal and moderate edema Incision: Surgical dressing intact with no drainage seen. No erythema around dressing is noted. OB - PN: Obj Data Labs Labs: Laboratory Results - last 24 hr 02/05/25 02/07/25 09:19 07:45 Hgb 11.1 L RPR Screen Non Reactive OB - PN: A/P Delivery Assessment and Plan (1) Status post primary low transverse section: Status: Acute (2) care and examination of lactating mother: Status: Acute Plan Comments: PP day #1 Routine care May see as desired Anticipate discharge 02/08/2025
[2025-02-07 16:10] VITALS: BP 121/79; PULSE 92; RESP 18; O2SAT 98
[2025-02-07] MEDS: SODIUM CHLORIDE 0.9 % (FLUSH) 10 ML SYRINGE IVF (16:13)
[2025-02-07] MEDS: IBUPROFEN 600 MG TABLET PO (19:59)
[2025-02-07 23:05] VITALS: BP 112/74; PULSE 97; RESP 18; TEMP 36.7; O2SAT 98
[2025-02-08] MEDS: ACETAMINOPHEN 500 MG TABLET 1000 MG PO ×2 (01:43→09:07)
[2025-02-08] MEDS: IBUPROFEN 600 MG TABLET PO (05:46)
--- NOTE | 2025-02-08 08:33 | P.DS_ITS ---
DS: Providers Provider Time Seen by Provider: 08:34 Date Seen: 02/08/25 Date of admission: 02/05/25 07:29 Primary care physician: Jasbir Pickard MD Admitting Clinician: Brianda Wakefield CNM Attending Physician on discharge: Alicia Guo MD Date of Discharge: 02/08/25 Exam Narrative: Exam Narrative: General: Pleasant, , well groomed woman in no acute distress. Vital signs: Included in her electronic medical record. Heart: Regular rate and rhythm without gallop, rub or murmur. Chest: Clear to auscultation bilaterally. Abdomen: Soft, nontender and nondistended with normal bowel sounds throughout. No CVA or flank tenderness. Fundus is firm in the midline at the umbilicus. Incision(s): Clean, dry and intact with subcutaneous suture Extremities: No pain or edema. Const: Vital Signs, click to edit/add: Vital Signs - 24 hr 02/07/25 10:24 02/07/25 16:10 02/07/25 23:05 Temperature 98.4 F 98.0 F Pulse Rate [Pulse Oximeter] 100 92 97 Respiratory Rate 20 18 18 Blood Pressure [Ri ght Arm] 117/80 121/79 112/74 Pulse Oximetry 98 98 98 Oxygen Delivery Me thod Room Air Room Air Room Air OB - DS: Summary Hospital Course Hospital Course: Mckenzie is a 24 year old G 1 P 0 now 1 at 40w6d gestation that was admitted to the Center on 02/05/25 for IOL due to late term . She had an uncomplicated delivery. She delivered a viable male infant. She is breast feeding with some latch issues. the patient has done well. Planning to be discharged today. Peripartum Data delivery method: Primary C/S; Labored Procedures: Procedures Operation Date: 02/06/25 07:00 Actual Procedure Side Surgeon p Section Not Applicable Shilpa Prakash MD [place] Infant Gender: Male Time Spent with Patient Time attestation: Total time spent providing and/or coordinating discharge services: Discharge Plan Discharge Disposition: Home, Self-Care Date of Admission: 02/05/25 07:29 Attending Provider on Discharge: Alicia Guo Primary Care Provider: Jasbir Pickard Condition: Improved Anticipated Discharge Date/Time: 02/08/25 13:00 Discharge Medications: New docusate sodium 100 mg Capsule 100 mg PO BID PRNQty: 100 0RF ibuprofen 600 mg Tablet 600 mg PO Q6H PRN (Reason: Pain) Qty: 30 0RF Continued triamcinolone acetonide 0.1 % cream 1 applic topical BID Qty: 30 1RF omega 5-fdi-ius-fish oil [Fish Oil] 60-90-500 mg capsule 2 cap PO QDAY DHA 200 mg capsule PO cholecalciferol (vitamin D3) 25 mcg (1,000 unit) capsule 25 mcg PO QDAY Discontinued metoclopramide HCl [Reglan] 10 mg tablet 10 mg PO Q6H PRN (Reason: headache) Qty: 30 0RF aspirin 81 mg tablet,delayed release (DR/EC) 81 mg PO QDAY No Action oxycodone 5 mg tablet 5 mg PO QID PRN (Reason: pain) Qty: 20 0RF Discharge Orders: Discharge Order (Routine); Ordered 02/08/25 Ordered By: Alicia Guo Patient Education: (DC) Additional Instructions: ACTIVITY RESTRICTIONS: Nothing vaginally for 6 weeks: no tampons/intercourse No driving while taking narcotic pain medication during the day. 1-2 weeks. Lifting restriction: Maximum of 20 pounds for 6 weeks. High impact or core exercises: 6 weeks. Submerge the incisions in water (bath/pool/choi): 2 weeks. Off of work/school for a minimum of 8 weeks NO RESTRICTIONS for: Walking Going up/down stairs Showering Being the passenger in a motor vehicle SYMPTOMS TO REPORT TO YOUR DOCTOR: Bleeding that is red, like a moderate period Passing clots larger than the size of a golf ball Pain not relieved by prescribed medication Fever above 100.4 degrees Fahrenheit A foul vaginal odor Decrease in urination or painful, frequent urinating Chest pain Shortness of breath Tenderness or pain with redness and/swelling in the calf(s) of your leg Follow-up Appointments: 1. 2 weeks: incision check, discuss control options, answer care questions and screen for anxiety/depression. 2. A 6 week postop visit to verify that the vaginal cuff is well-healed. For pain: Alternate ibuprofen (Advil) 600mg (3 tablets) with ES Tylenol 1,000mg (2 tablets) every 3 hours. Add oxycodone as needed up to 3 times a day for breakthrough pain. Activity Level: Other Follow Up Appointments: [facility] [Outside] Jasbir Pickard MD [Primary Care Provider, Family Practice] Forms: Access Mobile[employer] Info Instructions
[2025-02-08] MEDS: DOCUSATE SODIUM 100 MG CAPSULE PO (09:08)
[2025-02-08 09:11] VITALS: BP 114/78; PULSE 78; RESP 20; TEMP 36.4; O2SAT 97
== END 2025-02-08 11:26 | disposition home or self-care (01) | DRG 540 ==
PROVIDERS: Obstetrics & Gynecology; Admitting Provider Midwife, Lay; PCP Family Medicine; Visit Provider Midwife, Lay
PROC: 10D00Z1 Extraction of Products of Conception, Low, Open Approach (ICD-10-PCS; CPT 59514; principal; 2025-02-06 07:00)
DX: O48.0 Post-term pregnancy (principal); O32.4XX0 Maternal care for high head at term, not applicable or unspecified; O76 Abnormality in fetal heart rate and rhythm complicating labor and delivery; O77.0 Labor and delivery complicated by meconium in amniotic fluid; O26.86 Pruritic urticarial papules and plaques of pregnancy (PUPPP); G89.18 Other acute postprocedural pain; O99.344 Other mental disorders complicating childbirth; F33.9 Major depressive disorder, recurrent, unspecified; F41.9 Anxiety disorder, unspecified; Z37.0 Single live birth; Z3A.40 40 weeks gestation of pregnancy
CPT/HCPCS: 01967; 01968; 36415; 64488; 76942; 82803; 85018; 85025; 86592; 86850; 86900; 86901; 88307; 99140; A4314; A9270; J0456; J0665; J0666; J0690; J1100; J1885; J2210; J2371; J2405; J2590; J2795; J3010; J7050; J7120

== ENCOUNTER 2025-02-12 12:54 | Outpatient (CLI) | payer BC, SELFPAY ==
--- NOTE | 2025-02-12 15:40 | W.PM.LAC.MC ---
Consult Note - Mom Date of Visit Date of visit: 02/12/25 Reason for consultation: Assistance Needed Visit Code: Visit Patient's Information Phone number: [phone] : 1 Para: 1 Allergies No Known Drug Allergies Allergy (Verified 01/31/25 08:18) Mother's medical history: Anxiety and Depression Mother's Medical History: Medical History (Updated 02/07/25 @ 11:58 by Idania Plasencia CNM) Bone spur of left foot ?M77.52 - Other enthesopathy of left foot and ankle (ICD-10) Family history of thyroid disease ?Z83.49 - Family history of other endocrine, nutritional and metabolic diseases (ICD-10) Anxiety ?F41.9 - Anxiety disorder, unspecified (ICD-10) Major depression, recurrent ?F33.9 - Major depressive disorder, recurrent, unspecified (ICD-10) Sensorineural hearing loss (SNHL) of both ears (02/28/13) ?H90.3 - Sensorineural hearing loss, bilateral (ICD-10) Migraine with aura and without status migrainosus, not intractable (01/01/15) ?G43.109 - Migraine with aura, not intractable, without status migrainosus (ICD-10) Insomnia ?G47.00 - Insomnia, unspecified (ICD-10) Chronic daily headache ?R51.9 - Headache, unspecified (ICD-10) Work Plans: return to work Apr or May 2025 Delivery Information Delivery type: Primary C/S; Labored Gestational Age: 40+6 Gestational Weight For Age: AGA Weight: 4.095 kg Discharge Weight: 3.906 kg Percentage weight loss: 3.84 Baby's Information Baby's Age at Visit: 6 days Baby's Provider or Clinic: [facility] Jaundice: No Past Experience Past Experience: No Current Frequency of Day Feedings: every 1-2 hrs Frequency of Night Feedings: every 2-3 hrs Both Breasts: Yes Suck: strong Latch: easier on left than right, but will do both side; shield on right 50% time Length of Time: 25 min on 1st side, then 25-30 min on 2nd Goals: at least 1 year Pumping Pumping: No Supplementing EBM Supplement: No Formula Supplement: No Baby Elimination Number of Wet Diapers a Day: ea feeding Number of BM a Day: 6 yesterday; yellow and seedy in color Breast/Nipple Condition Breast Information: Breasts are symmetrical with rounded lower quadrants, intramammary distance is less than 1.5 inches. No erythema. Nipples are supple, everted prior to feeding. Breast Shape: Round Engorgement: No Maternal Nipple Condition - Left: Common Nipple Maternal Nipple Condition - Right: Common Nipple Sore Nipples: Yes Baby Assessment Skin: Normal Tongue/frenulum: Normal/elastic Palate: Average Lips: Relaxed and Symmetrical Jaw Alignment: Symmetrical Mucosa: [place], moist Onsite Observation Pre-Feed weight: 3.986 kg Post-Feed weight: 4.064 kg Milk Transferred (mL): 78 Position: Cross cradle Attachment/latch-on achieved: Easily Suck pattern: Suck burst and normal rest Swallow: Audible, consistent (explained to parents what a swallow looks, sounds like) Behavior following feed: Relaxed, sleepy Pre-Nursing Left Nipple: Within Normal Limits Pre-Nursing Right Nipple: Within Normal Limits Post-Nursing Left Nipple: Within Normal Limits Post-Nursing Right Nipple: Within Normal Limits Assessments/Interventions Assessments/Interventions: Wilber latched to mom's RIGHT breast, latched easily and stayed nursing for 12 minutes. Transferred 50 ml of milk, and came off independently Both parents think he was on deeper than he gets at home Wilber then latched to mom's LEFT breast after a 15 min pause, a burp and a poop; latched well and nursed for another 0 minutes. Transferred 28 ml of milk. Total milk transferred: 78 ml Wilber needed gentle support to stay latched. Education provided: Early feeding cues to maximize timing of latching, Asymmetric latch technique for wide/deep latch to increase milk, Transfer for baby and increase comfort for mom, Supply/demand nature of milk supply, Need for frequent stimulation/milk removal, Sore nipple treatment options, Alternative feeding methods (SNS, cup, finger feeding, bottling) and Pumping for milk management (as needed; in 1-2 weeks can pump to save a little milk for a stash) Feeding Plan: Worked with mom/taught asymmetrical latch technique for a wide, deep latch and mom reports increased comfort with this. Reviewed in both football and cross cradle hold Discussed normals of ; milk coming in, regulation of supply, use of pump to relieve fullness if needed, but not to pump every feeding if not needed to prevent over supply. Nipple care reviewed as well. Time Spent Time spent with patient (min): 75 Meds Home Medications and Allergies Home Medications ?Medication ?Instructions ?Recorded ?Confirmed ?Type docosahexaenoic acid 200 mg mg PO 07/03/24 01/31/25 History capsule ( DHA) omega 1-rfs-nlk-fish oil 60 mg-90 2 cap PO QDAY 07/03/24 02/05/25 History mg-500 mg capsule (Fish Oil) cholecalciferol (vitamin D3) 25 25 mcg PO QDAY 07/31/24 02/05/25 History mcg (1,000 unit) capsule triamcinolone acetonide 0.1 % 1 applic topical BID #30 grams 11/28/24 01/31/25 Rx topical cream docusate sodium 100 mg capsule 100 mg PO BID PRN #100 caps 02/08/25 Rx ibuprofen 600 mg tablet 600 mg PO Q6H PRN Pain #30 tabs 02/08/25 Rx oxycodone 5 mg tablet 5 mg PO QID PRN pain #20 tabs 02/08/25 Rx Allergies Allergy/AdvReac Type Severity Reaction Status Date / Time No Known Drug Allergies Allergy Verified 01/31/25 08:18
== END 2025-02-12 12:55 | disposition home or self-care (01) ==
LOC: OB LAC 12:55
PROVIDERS: PCP Family Medicine; Visit Provider Obstetrics & Gynecology
DX: Z39.1 Encounter for care and examination of lactating mother (principal)
CPT/HCPCS: G0463